=== PATIENT | male | born 1995 | race Two or more races ===

== ENCOUNTER 2018-01-11 21:07 | Emergency (ER) | payer OTHER ==
[2018-01-11] MEDS ORDERED: ACETAMINOPHEN 500 MG TABLET PO STA (21:32)
[2018-01-11] MEDS ORDERED: LIDOCAINE 1% 2 ML VIAL SUBQ STA (21:32)
[2018-01-11] MEDS ORDERED: KETOROLAC 60 MG/2 ML VIAL IM STA (21:32)
[2018-01-11] MEDS ORDERED: CYCLOBENZAPRINE 10 MG TABLET PO STA (21:32)
[2018-01-11 22:06] VITALS: BP 120/75
--- NOTE | 2018-01-11 22:07 | ED Physician Documentation ---
PD HPI NECK PAIN - Stated complaint Stated Complaint: NECK PX - Chief complaint Chief Complaint: Ext Problem - History obtained from History obtained from: Patient - History of Present Illness Timing - onset: Today Timing - details: Gradual onset, Still present Location: Lower, Right Quality: Pain, Spasm Associated symptoms: No: Fever, Weakness, Numbness Recently seen: Not recently seen - Additional information Additional information: Patient is a 22 year old male with no significant past medical history who is presenting to the emergency department for neck pain. patient states that he thinks he slept on it wrong and he woke up with right sided neck pain. patient denies any trauma. Review of Systems Ten Systems: 10 systems reviewed and negative Constitutional: denies: Fever, Chills Musculoskeletal: reports: Neck pain Neurologic: denies: Generalized weakness, Focal weakness, Numbness, Headache, Head injury, LOC PD PAST MEDICAL HISTORY - Past Medical History Past Medical History: No - Past Surgical History Past Surgical History: No - Present Medications Home Medications: Ambulatory Orders Medication Instructions Recorded Confirmed Ibuprofen [Motrin] 800 mg PO Q8H PRN #30 tablet 01/28/16 Penicillin V Potassium 500 mg PO QID #40 tablet 01/28/16 Cyclobenzaprine [Flexeril] 10 mg PO TID PRN #20 tablet 01/31/16 Ibuprofen [Motrin] 400 mg PO Q6H PRN #30 tablet 01/31/16 Lidocaine Patch 5% [Lidoderm Patch] 1 each TOP DAILY PRN #10 patch 01/31/16 Cyclobenzaprine [Flexeril] 10 mg PO TID PRN #10 tablet 01/11/18 - Allergies Allergies/Adverse Reactions: Allergies Allergy/AdvReac Type Severity Reaction Status Date / Time No Known Drug Allergies Allergy Verified 01/11/18 21:21 - Social History Does the pt smoke?: No Smoking Status: Never smoker Does the pt drink ETOH?: Yes Does the pt have substance abuse?: No - Immunizations Immunizations are current?: Yes PD ED PE NORMAL - Vitals Vital signs reviewed: Yes - General General: Alert and oriented X 3, No acute distress - HEENT HEENT: Atraumatic, PERRL - Cardiac Cardiac: RRR - Respiratory Respiratory: No respiratory distress - Abdomen Abdomen: Non distended - Derm Derm: Normal color, No rash - Extremities Extremities: No deformity - Neuro Neuro: Alert and oriented X 3, No motor deficit, Normal speech Eye Opening: Spontaneous Motor: Obeys Commands Verbal: Oriented GCS Score: 15 - Psych Psych: Normal mood PD ED PE EXPANDED - Neck Neck: Soft tissue TTP (tenderness to right paraspinal muscles, no bony tenderness) Results - Vitals Vitals: Vital Signs - 24 hr 01/11/18 01/11/18 21:19 22:05 Temperature 37.1 C 36.8 C Heart Rate 75 67 Respiratory 18 15 Rate Blood Pressure 131/72 H 120/75 O2 Saturation 97 98 Oxygen O2 Source Room air PD MEDICAL DECISION MAKING - ED course Complexity details: reviewed old records, re-evaluated patient, considered differential, d/w patient, d/w family ED course: patient was seen and examined at bedside. Patient had mild muscle spasms of the right side of his neck. Patient was treated with toradol, flexeril and a trigger point injection with 3ml of 1% lidocaine with moderate relief. Patient had no central tenderness, and there were no signs or symptoms of central cord injury. patient required no further work up and was stable for discharge with outpatient follow up. - Sepsis Event Vital Signs: Vital Signs - 24 hr 01/11/18 01/11/18 21:19 22:05 Temperature 37.1 C 36.8 C Heart Rate 75 67 Respiratory 18 15 Rate Blood Pressure 131/72 H 120/75 O2 Saturation 97 98 Oxygen O2 Source Room air Departure - Departure Disposition: 01 Home, Self Care Clinical Impression: Neck muscle strain Condition: Good Instructions: ED Spasm Neck No Injury Follow-Up: primary,care provider [Other] Prescriptions: Cyclobenzaprine [Flexeril] 10 mg PO TID PRN #10 tablet PRN Reason: Spasms Comments: Your symptoms today are likely being caused by a muscle spasm. You can take motrin or tylenol as needed for pain and flexeril for spasm. If you take the flexeril you cannot drive or operate heavy machinery while taking it. You should follow up with your doctor if your symptoms persist. You may return to the emergency department at any time for new, worsening or uncontrollable symptoms. Discharge Date/Time: 01/11/18 22:13
== END 2018-01-11 22:13 | disposition home or self-care (01) ==
LOC: ED 21:07
DX: S16.1XXA Strain of muscle, fascia and tendon at neck level, initial encounter (principal); X58.XXXA Exposure to other specified factors, initial encounter
CPT/HCPCS: 20552; 96372; 99283; A9270